=== PATIENT | male | born 2000 | race Caucasian/White ===

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

== ENCOUNTER → 2020-07-18 | Outpatient (CLI) | payer SELFPAY | LOC: WSOH 14:46 | DX: Z02.89 Encounter for other administrative examinations (principal) | CPT/HCPCS: G0463 ==